=== PATIENT | female | born 1985 | race Caucasian/White ===

== ENCOUNTER → 2018-03-16 18:33 | Observation (INO) ==
[2018-03-16 15:24] LABS: Bilirubin,Urine Small (Negative); Blood,Urine Negative (Negative); Color,Urine Dark Yellow (Yellow); Glucose,Urine (UA) Normal (Normal); Ketones,Urine Trace mg/dL (Negative); Leukocyte Esterase,Urine Small (Negative); Nitrite,Urine Negative (Negative); Protein,Urine 30 mg/dL (Neg-Trace); Specific Gravity,Urine 1.028 (1.010-1.025); Urobilinogen,Urine Normal (Normal)
[2018-03-16 15:26] LABS: Bacteria,Urine Many per hpf (None-Few); Squamous Epithelial Cell,Urine Many per lpf (None-Few)
[2018-03-16 15:32] LABS: Clarity,Urine Hazy (Clear)
[2018-03-16 15:34] LABS: Amphetamine Screen,Urine Negative ng/mL (Cutoff=1000); Barbiturate Screen,Urine Negative ng/mL (Cutoff=200); Benzodiazepines Screen,Urine Negative ng/mL (Cutoff=200); Cannabinoid Screen,Urine Negative ng/mL (Cutoff = 50); Cocaine Screen,Urine Negative ng/mL (Cutoff= 300); Opiate Screen,Urine Negative ng/mL (Cutoff=300); Phencyclidine Screen,Urine Negative ng/mL (Cutoff=25)
[2018-03-16 15:43] LABS: Amorphous Sediment,Urine Moderate (Few); Calcium Oxalate Crystals,Urine Present; Mucus,Urine Many (Few)
--- NOTE | 2018-03-16 16:06 | OB/GYN Progress Note ---
Date of Encounter: 03/16/18 Time of Encounter: 15:56 - Assessment and Plan (1) 31 weeks gestation of Current Visit: Yes Status: Acute admitted for observation (2) Vaginal discharge during in third trimester Current Visit: Yes Status: Acute vaginosis panel sent to lab and pending (3) NST (non-stress test) reactive on surveillance Current Visit: Yes Status: Acute 125 bpm moderate variability +15x15 accel no decels noted. Cat. 1 tracing No contractions noted Subjective - Subjective Principal diagnosis: low abdominal pain Interval history: Patient is a 32 y/o at 31w2d presents to labor and delivery with complaints of lower abdominal pain and vaginal discharge. Patient denies any VB, itching or burning. Patient reports +FM. Patient refused to complete 3 hour gtt. 1 hour gtt was 163. Patient states she is checking BS fasting are 90s and 2 hours pp 110- 120. Patient reports drinking regular pop and coffee. Patient reports she does not drink water. Discussed appropriate diet and drinks and accucheck range. Antepartum ROS: movement normal, no vaginal bleeding Objective - Exam FHR: auscultation normal, category 1 FHR comments: 135 bpm moderate variability +15x15 accels no decels noted. Auscultation: bilateral: normal Abdomen: Present: normal appearance, soft, gravid Uterus: Present: normal. Absent: tenderness Cervical dilation: Closed Cervix effacement: THick station: ballotable Comments: speculum exam: Negative pooling, moderate amount of thick white discharge. Vaginosis panel collected and sent to lab - Labs Labs: Abnormal lab results Urine Clarity Hazy (Clear) A 03/16/18 15:10 Ur Specific [place] 1.028 (1.010-1.025) H 03/16/18 15:10 Urine Protein 30 mg/dL (Neg-Trace) H 03/16/18 15:10 Urine Ketones Trace mg/dL (Negative) H 03/16/18 15:10 Urine Bilirubin Small (Negative) H 03/16/18 15:10 Ur Leukocyte Esterase Small (Negative) H 03/16/18 15:10 Urine Microscopic WBC 5-15 per hpf (0-3) H 03/16/18 15:10 Ur Squamous Epith Cells Many per lpf (None-Few) H 03/16/18 15:10 Amorphous Sediment Moderate (Few) H 03/16/18 15:10 Urine Bacteria Many per hpf (None-Few) H 03/16/18 15:10 Urine Mucus Many (Few) H 03/16/18 15:10 Ur Culture Indicated? NO. (NO) A 03/16/18 15:10
[2018-03-16 17:18] LABS: Trichomonas DNA Not Detected (Not Detect)
[2018-03-16 17:19] LABS: Candida DNA DETECTED (Not Detect); Gardnerella DNA Not Detected (Not Detect)
--- NOTE | 2018-03-16 17:22 | Discharge Summary ---
Date of Encounter: 03/16/18 Time of Encounter: 17:23 - Discharge Diagnosis (1) 31 weeks gestation of Priority: Primary Status: Acute (2) Vaginal discharge during in third trimester Priority: Secondary Status: Acute Comments: vaginosis positive for yeast (3) NST (non-stress test) reactive on surveillance Priority: Secondary Status: Acute (4) Yeast infection Priority: Secondary Status: Acute Comments: RX for terazol given - Discharge Medications Prescriptions: Terconazole [Terazol 3] 20 gm VG HS 3 Days #3 cream.appl Home Medications: Ondansetron [Zofran ODT] 8 mg SL TID PRN #9 tab.rapdis 04/28/16 [Rx] Pnv Cmb#21/Iron/Folic Acid [ Complete Caplet] 1 each PO DAILY #30 tablet 09/21/17 [Rx] Terconazole [Terazol 3] 20 gm VG HS 3 Days #3 cream.appl 03/16/18 [Rx] Allergies/Adverse Reactions: Allergy/AdvReac Type Severity Reaction Status Date / Time Penicillins Allergy Swelling Verified 09/26/17 00:03 of Lip/Tongue/Throat Data Procedures and tests throughout hospitalization: Laboratory Tests 03/16/18 03/16/18 03/16/18 15:10 15:10 16:00 POC Glucose Urine Color Dark Yellow Urine Clarity Hazy A Urine pH 6.0 Ur Specific [place] 1.028 H Urine Protein 30 H Urine Glucose (UA) Normal Urine Ketones Trace H Urine Blood Negative Urine Nitrite Negative Urine Bilirubin Small H Urine Urobilinogen Normal Ur Leukocyte Esterase Small H Urine Microscopic WBC 5-15 H Ur Squamous Epith Cells Many H Calcium Oxalate Crystal Present Amorphous Sediment Moderate H Urine Bacteria Many H Urine Mucus Many H Ur Culture Indicated? NO. A Urine Opiates Screen Negative Ur Barbiturates Screen Negative Ur Phencyclidine Scrn Negative Ur Amphetamines Screen Negative U Benzodiazepines Scrn Negative Urine Cocaine Screen Negative U Marijuana (THC) Screen Negative Ur Drug Screen Interp See Below Ute species DNA DETECTED A Gardnerella DNA Probe Not Detected Trichomonas DNA Probe Not Detected 03/16/18 16:21 POC Glucose 92 Urine Color Urine Clarity Urine pH Ur Specific [place] Urine Protein Urine Glucose (UA) Urine Ketones Urine Blood Urine Nitrite Urine Bilirubin Urine Urobilinogen Ur Leukocyte Esterase Urine Microscopic WBC Ur Squamous Epith Cells Calcium Oxalate Crystal Amorphous Sediment Urine Bacteria Urine Mucus Ur Culture Indicated? Urine Opiates Screen Ur Barbiturates Screen Ur Phencyclidine Scrn Ur Amphetamines Screen U Benzodiazepines Scrn Urine Cocaine Screen U Marijuana (THC) Screen Ur Drug Screen Interp Ute species DNA Gardnerella DNA Probe Trichomonas DNA Probe Labs on day of discharge: Labs from last 24 hours 03/16/18 03/16/18 03/16/18 16:21 16:00 15:10 POC Glucose 92 Urine Color Dark Yellow Urine Clarity Hazy A Urine pH 6.0 Ur Specific [place] 1.028 H Urine Protein 30 H Urine Glucose (UA) Normal Urine Ketones Trace H Urine Blood Negative Urine Nitrite Negative Urine Bilirubin Small H Urine Urobilinogen Normal Ur Leukocyte Esterase Small H Urine Microscopic WBC 5-15 H Ur Squamous Epith Cells Many H Calcium Oxalate Crystal Present Amorphous Sediment Moderate H Urine Bacteria Many H Urine Mucus Many H Ur Culture Indicated? NO. A Urine Opiates Screen Ur Barbiturates Screen Ur Phencyclidine Scrn Ur Amphetamines Screen U Benzodiazepines Scrn Urine Cocaine Screen U Marijuana (THC) Screen Ur Drug Screen Interp Ute species DNA DETECTED A Gardnerella DNA Probe Not Detected Trichomonas DNA Probe Not Detected 03/16/18 15:10 POC Glucose Urine Color Urine Clarity Urine pH Ur Specific [place] Urine Protein Urine Glucose (UA) Urine Ketones Urine Blood Urine Nitrite Urine Bilirubin Urine Urobilinogen Ur Leukocyte Esterase Urine Microscopic WBC Ur Squamous Epith Cells Calcium Oxalate Crystal Amorphous Sediment Urine Bacteria Urine Mucus Ur Culture Indicated? Urine Opiates Screen Negative Ur Barbiturates Screen Negative Ur Phencyclidine Scrn Negative Ur Amphetamines Screen Negative U Benzodiazepines Scrn Negative Urine Cocaine Screen Negative U Marijuana (THC) Screen Negative Ur Drug Screen Interp See Below Ute species DNA Gardnerella DNA Probe Trichomonas DNA Probe Date of admission: 03/16/18 14:53 Primary care physician: Niya Gunter MD Discharging clinician: Janelle Cook Anticipated date of discharge: 03/16/18 - Patient Status Disposition: Home, Self-Care Condition: Good - Discharge Instructions Follow Up With: Niya Gunter MD [Primary Care Provider] - Tk Herrera MD [Partnered Physician] - - Diet and Activity Activity: increase activity as tolerated Diet: regular diet 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 Attestation: Total time spent providing and/or coordinating discharge services: Time Spent: Less than 30 minutes Exam - Constitutional General appearance IM: A&O X 3, pleasant, answers questions appropriately - Respiratory Respiratory exam: Present: CTAB - Cardiovascular Cardiovascular exam IM: Present: RRR, +S1, +S2 - GI/Abdominal GI/Abdominal exam IM: normal bowel sounds - Extremities Exam Extremities exam IM: Present: full ROM, normal capillary refill, normal inspection - Neurological Exam Neurological exam: alert, oriented X3, reflexes normal - VTE Reasons for not Prescribing Prophylaxis: Treatment not Indicated - Low risk for VTE
== END | disposition home or self-care (01) ==
LOC: 1NENULAB
PROVIDERS: ADMIT Advanced Practice Midwife; ATTEND Advanced Practice Midwife

== ENCOUNTER 2018-05-09 07:29 | Inpatient (IN) ==
[2018-05-09] MEDS ORDERED: Epidural Premix (fent/bupiv) 110 ML EP SCH (08:00)
[2018-05-09] MEDS ORDERED: Lidocaine 1% 20 ML MDV INFILT PRN (08:03)
[2018-05-09] MEDS ORDERED: Ondansetron 4 MG/2 ML VIAL IVP PRN (08:03)
[2018-05-09] MEDS ORDERED: Famotidine 20 MG/2 ML VIAL IVP PRN (08:03)
[2018-05-09] MEDS ORDERED: Naloxone 0.4 MG/ML INJ IVP PRN (08:03)
[2018-05-09] MEDS ORDERED: *HR* Nalbuphine 10 MG/ML AMPUL IVP PRN (08:03)
[2018-05-09] MEDS ORDERED: Metoclopramide 10 MG/2 ML VIAL IVP PRN (08:03)
[2018-05-09] MEDS ORDERED: Ringers Solution, Lactated 1,000 ML IVC SCH (08:15)
[2018-05-09] MEDS ORDERED: Oxytocin 20 units/ LR 1000 mL 20 UNIT/1,000 ML BAG IVC SCH ×2 (08:15→20:30)
[2018-05-09 08:38] LABS: Basophils % 0.3 %; Eosinophils # 0.1 K/mcL (0.0-0.6); Eosinophils % 0.7 %; Hematocrit 37.9 % (35.3-44.9); Hemoglobin 13.1 g/dL (11.5-15.4); Immature Granulocytes % 0.6 % (0-4); Lymphocytes # 2.7 K/mcL (0.6-4.6); Lymphocytes % 19.5 %; Mean Corpuscular HGB Conc 34.6 g/dL (31.6-35.5); Mean Corpuscular Volume 89.6 fL (83.0-100.0); Mean Platelet Volume 10.6 fL (9.4-12.4); Monocytes # 0.8 K/mcL (0.0-1.3); Monocytes % 5.7 %; Neutrophils # 10.2 K/mcL (1.6-8.9); Platelet Count 269 K/mcL (140-400); Red Blood Count 4.23 M/mcL (3.82-4.97); Red Cell Distribution Width 13.2 % (11.5-14.5); Segmented Neutrophils % 73.2 %
[2018-05-09 08:49] LABS: Amphetamine Screen,Urine Negative ng/mL (Cutoff=1000); Barbiturate Screen,Urine Negative ng/mL (Cutoff=200); Benzodiazepines Screen,Urine Negative ng/mL (Cutoff=200); Cannabinoid Screen,Urine Negative ng/mL (Cutoff = 50); Cocaine Screen,Urine Negative ng/mL (Cutoff= 300); Opiate Screen,Urine Negative ng/mL (Cutoff=300); Phencyclidine Screen,Urine Negative ng/mL (Cutoff=25)
--- NOTE | 2018-05-09 10:14 | Anesthesia Evaluation PreOp ---
Date of Encounter: 05/09/18 Time of Encounter: 10:12 - Past History Planned Operation: AISSATOU/TOLAC/Repeat C/S Cardiac History: Denies any Significant Hx Pulmonary History: Denies Any Significant HX HEART COORDINATOR History: Denies Any Significant HX Other Medical History: Denies Any Significant HX Anesthesia History: No Prior Anesthetic Complications, Past Anesthesia (Epidural for first . Proceeded to primary c/s at [facility].) Alcohol Use: none Drug use: none Medications and Allergies Ondansetron [Zofran ODT] 8 mg SL TID PRN #9 tab.rapdis 04/28/16 [Rx] Pnv Cmb#21/Iron/Folic Acid [ Complete Caplet] 1 each PO DAILY #30 tablet 09/21/17 [Rx] Allergy/AdvReac Type Severity Reaction Status Date / Time acetaminophen [From Vicodin] Allergy Vomiting Verified 05/09/18 08:02 hydrocodone [From Vicodin] Allergy Vomiting Verified 05/09/18 08:02 Penicillins Allergy Swelling Verified 04/15/18 18:51 of Lip/Tongue/Throat - Meds/Allergy Pre-op Review Medications Reviewed: Yes Allergies Reviewed: Yes Beta Blockers on Current Med List: No Anesthesia Results - Labs 05/09/18 08:10 Anesthesia Exam O2 Sat Height 1.63 m Weight 96 kg NPO (# of Hours): 4 Pain Scale: 5 Pain Scale Used: Numeric (1 - 10) - HEENT Pupil (Motor): Pupils equal Mallampati: II Teeth: Normal Oral Opening: Greater than 3 - HEART COORDINATOR LOC: Oriented HEART COORDINATOR Motor: Normal RUE, Normal LUE, Normal RLE, Normal LLE, Normal Face HEART COORDINATOR Sensory: Normal: RUE, LUE, RLE, LLE, Face - Cardiac Rhythm: Regular Murmur: None JVD: No Carotid Bruit: No - Pulmonary Breath Sounds: bilateral Clear Respiratory Effort: Symmetrical Anesthesia Assess/Plan ASA Score: 2 Level of consciousness: Cooperative, Oriented Anesthetic Plan: General, Epidural Autologous Blood: Yes Monitoring Plan: Standard Monitors
[2018-05-09] MEDS ORDERED: Lidocaine -MPF 1% 5 ML AMPUL ONE (13:45)
[2018-05-09] MEDS ORDERED: Lidocaine/EPI 1:200k 2% PF 20 ML VIAL ONE (14:09)
[2018-05-09] MEDS ORDERED: *HR* FentaNYL (PF) 100 MCG/2 ML VIAL ONE (14:09)
[2018-05-09] MEDS ORDERED: *HR* ROPIVACAINE 1% PF 100 MG/10 ML VIAL ONE (14:09)
--- NOTE | 2018-05-09 14:17 | Anesthesia Procedures ---
Addendum entered and electronically signed by Guillermo Bautista CRNA 05/10/18 06:34: Delivery Date: 05/09/18 Infant Delivery Time: 16:51 Original Note: Date of Encounter: 05/09/18 Time of Encounter: 14:15 Procedures: Anesthesia - Epidural/Spinal Patient ID/Chart reviewed: Yes Patient examined: Yes OB Eval: Gestational age: 39 OB Eval: : 2 OB Eval: Hx Para: 1 OB Eval: Dilated at (cm): 3 OB Eval: Contractions: Non-stressed pattern Consent Obtained: Yes (TOLAC) Supplemental Oxygen: None/Room Air Site Prep: Aseptic Technique, Sterile prep and drape, Povidone-Iodine 1% Patient position: upright Local Anesthetic: Lidocaine 1% Amount of Local Anesthetic used: 3 Touhy Needle Gauge: 18 Touhy Needle Depth (cm): 8 Catheter Depth at Skin (cm): 20 Test Dose (1.5% Lido + Epi): Volume given (mls): 5 Test Dose Result: Negative Loading Dose: Fentanyl (mcg): 100 Loading Dose: Other: 5ml 1%ropivacaine 5ml 2%lidocaine with epi Loading Dose Administered: Thru Catheter Infusion Med: 0.125% Bupivacaine w/ 2 mcg/ml Fentanyl Infusion Rate (mls/hr): 16 ([id number]) Catheter Secured in Place: Tegaderm, Tape Interspace Used: L4-L5 Loss of Resistance (ELAINA): Yes Blood: No CSF: No Paresthesia: No Procedure: pt tolerated procedure well. no complications. vss. fhr stable.
[2018-05-09] MEDS ORDERED: EPHEDrine 50 MG/ML VIAL ONE (14:27)
--- NOTE | 2018-05-09 14:36 | OB Labor Progress Note ---
Date of Encounter: 05/09/18 Time of Encounter: 14:34 Labor Progress Note - Subjective Subjective: Called into room for decels - Vital Signs Vital Signs: VSS - Cervix Cervix: 8/100/0 - Heart Tones Heart Tones: 135 baseline; cat 2 tracing with variables. - Kennerdell Kennerdell: Contractions every 3 minutes - Plan Physician notified: Yes Physician notified details: Physician notified of patient's progress Plan: Continue routine labor management GBS negative continue pitocin as ordered Anticipate vaginal delivery POC per consult with Dr Brooke
--- NOTE | 2018-05-09 19:20 | OB/GYN History & Physical ---
Date of Encounter: 05/09/18 Time of Encounter: 19:15 Assessment and Plan (1) 39 weeks gestation of Current visit: Yes Status: Acute Pt presents for induction of labor after prior . Pt is aware of risks and desires to proceed. History of Present Illness Chief complaint: Presents for trial of labor after section HPI: Ms. Dunn is a 33 year old female 2 para 1 female at 39 weeks gestation in labor and delivery for trial labor after section she is aware of risks and desired to proceed. Irregular contractions no bleeding or leakage of fluid (frozen uncomplicated Past Med Surg Social Fam HX - Past Medical History Source: patient, old records reviewed Medical history: no medical history Psychiatric history: anxiety - Past Surgical History Surgical History: - Social History Smoking Status: Current every day smoker Packs per day: 1/2 Smokeless Tobacco Status: No Alcohol use: none Drug use: none - Family History Father Adopted: No Age: 50 Family Member Ethnicity: Non- Twin of Family Member: Yes, Fraternal Living Status: Still Living Hx Family Cardiac Disorders: No Hx Family Respiratory Disorders: No Hx Family Cancer: No Hx Family GI Disorders: No Hx Family Genitourinary Disorders: No Hx Family Endocrine Disorder: No Hx Family Musculoskeletal Disorders: No Hx Family Neuromuscular Disorders: Yes (fibromyalgia) Hx Family Neurologic Disorders: No Hx Family HEENT Disorders: No Hx Family Autoimmune Disorders: No Hx Family Reproductive Disorders: No Hx Family Psychosocial Disorders: No Hx Family Medical Disorders: No Obstetrical History - Pregnancies : 2 Medications and Allergies Ondansetron [Zofran ODT] 8 mg SL TID PRN #9 tab.rapdis 04/28/16 [Rx] Pnv Cmb#21/Iron/Folic Acid [ Complete Caplet] 1 each PO DAILY #30 tablet 09/21/17 [Rx] Allergy/AdvReac Type Severity Reaction Status Date / Time acetaminophen [From Vicodin] Allergy Vomiting Verified 05/09/18 08:02 hydrocodone [From Vicodin] Allergy Vomiting Verified 05/09/18 08:02 Penicillins Allergy Swelling Verified 04/15/18 18:51 of Lip/Tongue/Throat Exam - Constitutional Constitutional: well developed - HEENT HEENT: EOMI, PERRL - Neck Neck exam: full ROM - Lungs Respiratory exam: CTAB - Cardiovascular Cardiovascular exam: RRR - Abdomen Abdomen: Present: gravid - Extremities Extremities exam: full ROM Deep Tendon Reflex Grade: 2+ Normal - Cervix Dilation: 4 Effacement: 80 Results Result Diagrams: 05/09/18 08:10 Abnormal lab results WBC 14.0 K/mcL (4.3-11.1) H 05/09/18 08:10 Neutrophils # 10.2 K/mcL (1.6-8.9) H 05/09/18 08:10 All other labs normal. - VTE Reasons for not Prescribing Prophylaxis: Treatment not Indicated - Low risk for VTE
--- NOTE | 2018-05-09 20:29 | OB/GYN Procedure Note ---
Delivery - Delivery Date: 05/09/18 Provider: Tk Herrera Intrapartum events: none Delivery induction: oxytocin Delivery monitor: external FHT, external uterine Anesthesia: epidural Quantitated Blood Loss: 350 - (s) Infant A Delivery Date: 05/09/18 Delivery Time: 16:51 Presentation: vertex Position: MK Route of delivery: (with vacuum assistance secondary to category 2 tracing.) Gender: Female Viability: Viable Weight Gram: 3.27 kg at 1 minute: 9 Shoulder Dystocia: not encountered Specimens collected: cord blood Placenta: spontaneous Cord: 3 umbilical vessels - Repair Laceration Description: Perineal - 2nd Degree - Complications Delivery complications: none - Disposition Mom disposition: stable in LDR Hanna disposition: stable in LDR - Comments Comments: Delivery note: Patient reached complete dilatation placed to 3 station in having variable and occasional late decelerations. Did have good variability after discussed with patient options decision was made to attempt vacuum extraction. The prior to placement vacuums to begin having swelling and right labia majora and minora consistent with probable right-sided labial hematoma. Vacuum was applied to approximate pressure of however and 50 mmHg for partially 7 seconds we had a monitor pop-off. Really did not have much progress in descent therefore I would continued pushing. The hematoma did not remain relatively stable she did have good maternal effort and again the vacuum was applied because of the category 2 tracing as well as large hematoma and efforts to prevent expansion of the hematoma. This point she was beginning to have some more pressure the vacuum then she was part a third time and then was given maternal effort after the vacuum infant was delivered from left occiput anterior presentation. With spontaneous delivery of normal placenta with three-vessel cord weight is 7 lbs. 3 oz. Apgars were 9 at 1 minute and 9 at 5 minutes was second-degree laceration that was repaired with 3-0 Vicryl. Extended the repair there was quite a bit of oozing I did obtain attempt to apply Conrado. She did continue to have using several [id number] stitches placed in a scatter was unhappy with the Gomez was still bleeding now is which may be bleeding from the apex. For this reason I did cut down the previous repair site again perform expiration of the apex of the vagina. There is no further lacer ations did again repair the vagina in this did control majority of the bleeding. In Conrado was applied was a [id number] stitch placed along the right vaginal wall near the hematoma which was bleeding. A blood loss was 350 mL. This point all sponge and instruments counts are correct patient and recovered in labor and delivery
[2018-05-09] MEDS ORDERED: Ondansetron ODT 4 MG TAB.RAPDIS SL PRN (20:30)
[2018-05-09] MEDS ORDERED: *HR* OxyCODONE Immed Rel 5 MG TABLET PO PRN ×2 (20:30)
[2018-05-09] MEDS ORDERED: Benzocaine/Menthol 56 GM AEROSOL SPRAY TP PRN (20:30)
[2018-05-09] MEDS ORDERED: Sennosides 8.6 MG TABLET PO PRN (20:30)
[2018-05-09] MEDS ORDERED: Measles/Mumps/Rubella Vacc 0.5 ML VIAL SQ PRN (20:30)
[2018-05-09] MEDS ORDERED: Oxytocin 20 units/ LR 1000 mL 20 UNIT/1,000 ML BAG IVC ONE (20:30)
[2018-05-09] MEDS: *HR* Acetaminophen w/Cod 300-30 mg 1 TAB TABLET PO PRN (21:21)
[2018-05-10] MEDS: *HR* Acetaminophen w/Cod 300-30 mg 1 TAB TABLET PO PRN ×4 (03:58→20:41)
[2018-05-10 07:17] LABS: Basophils % 0.3 %; Eosinophils # 0.1 K/mcL (0.0-0.6); Eosinophils % 0.8 %; Hematocrit 29.2 % (35.3-44.9); Immature Granulocytes % 0.8 % (0-4); Lymphocytes # 2.6 K/mcL (0.6-4.6); Lymphocytes % 19.8 %; Mean Corpuscular HGB Conc 33.2 g/dL (31.6-35.5); Mean Corpuscular Hemoglobin 31.2 pg (28.0-33.3); Mean Corpuscular Volume 93.9 fL (83.0-100.0); Mean Platelet Volume 10.9 fL (9.4-12.4); Monocytes # 0.8 K/mcL (0.0-1.3); Monocytes % 6.3 %; Neutrophils # 9.3 K/mcL (1.6-8.9); Platelet Count 224 K/mcL (140-400); Red Blood Count 3.11 M/mcL (3.82-4.97); Red Cell Distribution Width 13.3 % (11.5-14.5)
[2018-05-10 07:18] LABS: Hemoglobin 9.7 g/dL (11.5-15.4)
[2018-05-10] MEDS: Prenatal Vit/FA 1 EACH TABLET PO SCH (08:45)
[2018-05-10] MEDS: Baclofen 10 MG TABLET PO SCH ×2 (09:50→23:19)
--- NOTE | 2018-05-10 10:19 | OB/GYN Progress Note ---
Date of Encounter: 05/10/18 Time of Encounter: 10:13 - Assessment and Plan (1) Vaginal delivery Current Visit: Yes Status: Acute Meeting day 1 milestones Continue routine pp care Anticipate discharge home later today or tomorrow depending on status of hem atoma (2) anemia Current Visit: Yes Status: Acute Continue iron supplementation as ordered (3) Perineal/vulvar hematoma with delivery, condition Current Visit: Yes Status: Acute Ice pack continually through 24h pp Subjective - Subjective Principal diagnosis: s/p Interval history: Feeling well. Out of bed without dizziness. Severe perineal discomfort-using ice pack, epifoam, dermoplast. Cramping minimal, using ibuprofen. Bottlefeeding. Voiding via indwelling urinary catheter. Passing flatus, no BM yet. Tolerating regular diet. Patient reports: appetite normal, ambulating normally, no voiding normally, no pain well controlled [place]: doing well, bottle feeding Objective - Latest Vital Signs Latest vital signs: Vital Signs Temp Pulse Resp BP Pulse Ox 05/10/18 09:55 97.8 F 88 16 110/75 05/10/18 03:41 97.8 F 85 16 104/64 96 05/09/18 21:49 97.7 F 97 14 130/80 98 05/09/18 20:55 97.4 F L 82 16 112/74 97 05/09/18 20:00 97.8 F 73 16 108/71 97 Intake and Output 05/09/18 05/10/18 05/10/18 23:59 07:59 15:59 Output Total 1400 / 1400 1200 / 1200 Balance -1400 / -1400 -1200 / -1200 Output: Catheter 1400 / 1400 1200 / 1200 Other: Meal Breakfast Percent of Meal Consumed 100% - Exam Lungs: bilateral: normal Chest: Normal S1, Normal S2 Extremities: Present: normal, edema Abdomen: Present: normal appearance, soft Uterus: Present: normal, firm Uterus Position: 2 Fingers Below Umbilicus, Midline Comments: Right labial hematoma about 5 cm in thickness - Labs Labs: Laboratory Results - last 24 hr 05/10/18 06:40 WBC 12.9 H RBC 3.11 L Hgb 9.7 L D Hct 29.2 L MCV 93.9 MCH 31.2 MCHC 33.2 RDW 13.3 Plt Count 224 MPV 10.9 Immature Gran % 0.8 Seg Neutrophils % 72.0 Lymphocytes % 19.8 Monocytes % 6.3 Eosinophils % 0.8 Basophils % 0.3 Neutrophils # 9.3 H Lymphocytes # 2.6 Monocytes # 0.8 Eosinophils # 0.1 Basophils # 0.0
[2018-05-10] MEDS: Ibuprofen 600 MG TABLET PO PRN (12:37)
[2018-05-11 08:17] VITALS: BP 131/86
[2018-05-11] MEDS: Prenatal Vit/FA 1 EACH TABLET PO SCH (09:39)
[2018-05-11] MEDS: Ibuprofen 600 MG TABLET PO PRN (09:39)
[2018-05-11] MEDS: Baclofen 10 MG TABLET PO SCH (09:40)
--- NOTE | 2018-05-11 10:47 | Discharge Summary ---
Date of Encounter: 05/11/18 Time of Encounter: 10:47 - Discharge Diagnosis (1) Status post vaginal delivery Priority: Primary Status: Acute Comments: Pt meeting PPD2 milestones. Discussed BC options and safe spacing. Denies BC today, plans to speak with Dr. Herrera about a plan. Anticipate discharge home today. (2) Perineal/vulvar hematoma with delivery, condition Priority: Secondary Status: Acute Comments: Right labial hematoma soft. Pt reports improved pain today and pain managed by ibuprofen. Return precautions reviewed. (3) anemia Priority: Secondary Status: Acute Comments: Pt denies s/sx of anemia. Continue on iron supplementation. - Discharge Medications Prescriptions: Ibuprofen [Motrin] 600 mg PO Q6HR PRN #60 tablet PRN Reason: Cramping Docusate [Colace] 100 mg PO BID #60 capsule Ferrous Sulfate 325 mg PO DAILY #60 tablet Hydrocortisone/Pramoxine [Epifoam] 1 appl TP TID #1 bottle Home Medications: Ondansetron [Zofran ODT] 8 mg SL TID PRN #9 tab.rapdis 04/28/16 [Rx] Pnv Cmb#21/Iron/Folic Acid [ Complete Caplet] 1 each PO DAILY #30 tablet 09/21/17 [Rx] Amitriptyline [Elavil] 25 mg PO HS tablet 05/11/18 [Rx] Benzocaine/Menthol [place] [Dermoplast [place]] 1 appl TP QID PRN aerosol 05/11/18 [Rx] DULoxetine [Cymbalta] 20 mg PO BID capsule. 05/11/18 [Rx] Docusate [Colace] 100 mg PO BID #60 capsule 05/11/18 [Rx] Ferrous Sulfate 325 mg PO DAILY #60 tablet 05/11/18 [Rx] Hydrocortisone/Pramoxine [Epifoam] 1 appl TP TID #1 bottle 05/11/18 [Rx] Ibuprofen [Motrin] 600 mg PO Q6HR PRN #60 tablet 05/11/18 [Rx] Meloxicam [Mobic] 15 mg PO DAILY tablet 05/11/18 [Rx] Allergies/Adverse Reactions: Allergy/AdvReac Type Severity Reaction Status Date / Time Penicillins Allergy Swelling Verified 04/15/18 18:51 of Lip/Tongue/Throat hydrocodone [From Vicodin] AdvReac Vomiting Verified 05/09/18 21:08 oxycodone [From Percocet] AdvReac See Verified 05/09/18 21:15 Comments Data Procedures and tests throughout hospitalization: Laboratory Tests 05/09/18 05/09/18 05/10/18 08:10 08:26 06:40 WBC 14.0 H 12.9 H RBC 4.23 3.11 L Hgb 13.1 9.7 L D Hct 37.9 29.2 L MCV 89.6 93.9 MCH 31.0 31.2 MCHC 34.6 33.2 RDW 13.2 13.3 Plt Count 269 224 MPV 10.6 10.9 Immature Gran % 0.6 0.8 Seg Neutrophils % 73.2 72.0 Lymphocytes % 19.5 19.8 Monocytes % 5.7 6.3 Eosinophils % 0.7 0.8 Basophils % 0.3 0.3 Neutrophils # 10.2 H 9.3 H Lymphocytes # 2.7 2.6 Monocytes # 0.8 0.8 Eosinophils # 0.1 0.1 Basophils # 0.0 0.0 Urine Opiates Screen Negative Ur Barbiturates Screen Negative Ur Phencyclidine Scrn Negative Ur Amphetamines Screen Negative U Benzodiazepines Scrn Negative Urine Cocaine Screen Negative U Marijuana (THC) Screen Negative Ur Drug Screen Interp See Below Date of admission: 05/09/18 07:29 Primary care physician: Niya Gunter MD Consults: 05/09/18 20:30 Consult to Electronic Component Processor [CONS] Routine Comment: Vaginal delivery, consult needed Discharging clinician: Lianna Arguelles Anticipated date of discharge: 05/11/18 - Patient Status Disposition: Home, Self-Care Condition: Good Functional capacity at discharge: independent ambulation Overall status at discharge: patient is progressing back to baseline - Discharge Instructions Follow Up With: Niya Gunter MD [Primary Care Provider] - Tk Herrera MD [Partnered Physician] - - Diet and Activity Activity: increase activity as tolerated Diet: advance to your usual diet Hospital Course Reason for admission: induction of labor Delivery: (), vacuum extraction Episiotomy: none Laceration: 2nd degree Other procedures: none complications: hematoma (Right labial hematoma) Discharge diagnosis: IUP at term delivered [place] baby: female Hospital course: - Delivery Date: 05/09/18 Provider: Tk Herrera Intrapartum events: none Delivery induction: oxytocin Delivery monitor: external FHT, external uterine Anesthesia: epidural Quantitated Blood Loss: 350 - Infant (s) A Delivery Date: 05/09/18 Delivery Time: 16:51 Presentation: vertex Position: MK Route of delivery: (with vacuum assistance secondary to category 2 tracing.) Gender: Female Viability: Viable Weight Gram: 3.27 kg at 1 minute: 9 Shoulder Dystocia: not encountered Specimens collected: cord blood Placenta: spontaneous Cord: 3 umbilical vessels - Repair Laceration Description: Perineal - 2nd Degree - Complications Delivery complications: none - Disposition Mom disposition: home PPD2 disposition: home with mother, bottle feeding Time Attestation: Total time spent providing and/or coordinating discharge services: Exam - Constitutional Vitals: Temp Pulse Resp BP Pulse Ox 98.1 F 86 16 131/86 99 05/11/18 08:16 05/11/18 08:16 05/11/18 08:16 05/11/18 08:16 05/11/18 08:16 General appearance IM: A&O X 3, pleasant, no acute distress - Respiratory Respiratory exam: Present: CTAB - Cardiovascular Cardiovascular exam IM: Present: RRR - GI/Abdominal GI/Abdominal exam IM: normal bowel sounds - Uterine Tone: Firm Uterus Position: 2 Fingers Below Umbilicus Additional comments: Right labial hematoma soft - Extremities Exam Extremities exam IM: Present: normal capillary refill, normal inspection. Absent: calf tenderness - Neurological Exam Neurological exam: alert, oriented X3, reflexes normal
== END 2018-05-11 14:14 | disposition home or self-care (01) | DRG 560 ==
LOC: 1NENULAB 07:29 → 1NENUOBS 20:14
PROVIDERS: ADMIT Obstetrics & Gynecology; ATTEND Obstetrics & Gynecology